=== PATIENT | female | born 1995 | race American Indian/Alaskan Native ===

== ENCOUNTER 2016-12-03 06:39 | Emergency (ER) | payer OTHER ==
[2016-12-03 06:39] VITALS: BMI 25.6
[2016-12-03 07:03] VITALS: RESP 18; TEMP 98.3
[2016-12-03 08:49] VITALS: BP 133/77; PULSE 80; O2SAT 99
--- NOTE | 2016-12-03 08:49 | ED PDOC ---
Arrival/HPI - General Chief Complaint: Female Genitourinary Time Seen by Provider: 12/03/16 07:36 Historian: Patient - History of Present Illness Narrative History of Present Illness (Text): 12/03/16 08:00 A 21 year old female, who denies any significant past medical history, presents to the emergency department for abscess to the suprapubic region, which began 1 week ago. The patient reports she was previously seen in [facility] and was given antibiotics, which was then changed by her primary medical doctor upon follow up. The patient notes she has been applying warm packs to the area and has not had any drainage. The patient admits to having increased urine frequency, but denies any fevers, dysturia, hematuria, or any other complaints at this time. Time/Duration: 1 week Symptom Onset: Gradual Symptom Course: Unchanged Activities at Onset: Light Context: Home Past Medical History - Provider Review Nursing Documentation Reviewed: Yes - Past History Past History: No Previous - Infectious Disease Hx of Infectious Diseases: None - Tetanus Immunization Tetanus Immunization: Unknown - Past Medical History Past Medical History: No Previous - Psychiatric Hx Depression: No Hx Emotional Abuse: No Hx Physical Abuse: No Hx Sexual Abuse: No Hx Substance Use: No - Past Surgical History Past Surgical History: No Previous - Anesthesia Hx Anesthesia: Yes Hx Anesthesia Reactions: No - Suicidal Assessment Feels Threatened In Home Enviroment: No Family/Social History - Physician Review Nursing Documentation Reviewed: Yes Family/Social History: Unknown Family HX Smoking Status: Never Smoked Hx Alcohol Use: No Hx Substance Use: No Hx Substance Use Treatment: No Allergies/Home Meds Allergies/Adverse Reactions: Allergies No Known Allergies Allergy (Verified 12/03/16 07:02) Home Medications: Home Meds Medication Instructions Recorded Confirmed No Known Home Med 10/05/15 12/03/16 Review of Systems - Physician Review All systems were reviewed & negative as marked: Yes - Review of Systems Constitutional: absent: Fevers Genitourinary Female: Frequency, Other (abscess to the suprapubic region). absent: Dysuria, Hematuria Physical Exam Vital Signs Reviewed: Yes Vital Signs Temp Pulse Resp BP Pulse Ox 12/03/16 08:10 80 18 133/77 99 12/03/16 07:02 98.3 F 97 H 18 138/87 100 Temperature: Afebrile Blood Pressure: Normal Pulse: Tachycardic Respiratory Rate: Normal Appearance: Positive for: Well-Appearing, Non-Toxic, Comfortable Pain Distress: None Mental Status: Positive for: Alert and Oriented X 3 - Systems Exam Respiratory/Chest: Present: Clear to Auscultation, Good Air Exchange. No: Respiratory Distress, Accessory Muscle Use Cardiovascular: Present: Regular Rate and Rhythm, Normal S1, S2. No: Murmurs Abdomen: Present: Normal Bowel Sounds. No: Tenderness, Distention, Peritoneal Signs Genitourinary/Pelvic Exam: Present: Other (2 cm indurated, fluctuant abscess that is tender to touch; no erythema). No: Vaginal Discharge, Vaginal Bleeding Medical Decision Making ED Course and Treatment: 12/03/16 08:52 Impression: A 21 year old female with genital abscess. Differential Diagnosis included but are not limited to: Plan: -- Urine Culture -- test -- Urinalysis -- Reassess and disposition Progress Notes: Procedure: Incision & Drainage Performed by the emergency provider Indication: Abscess Location: Suprapubic Preparation: The area was prepped and draped in the usual sterile fashion and was cleansed with . Procedure: The most fluctuant portion of the abscess was incised with a #11 scalpel. Approximately 10 mL of pus was obtained. The abscess was packed. A dressing was applied by the RN. Patient is instructed to follow up with her primary doctor in 2 days for wound check. Post-Procedure: On exam the abscess is notably less fluctuant. The patient tolerated the procedure well, and there were no complications. Cultured: {NO} - Lab Interpretations Lab Results: Lab Results 12/03/16 08:30: Urine Color Yellow, Urine Appearance Clear, Urine pH 6.5, Ur Specific [place] 1.025, Urine Protein Trace H, Urine Glucose (UA) Negative, Urine Ketones Negative, Urine Blood Negative, Urine Nitrate Negative, Urine Bilirubin Negative, Urine Urobilinogen 0.2, Ur Leukocyte Esterase Negative, Urine RBC Negative, Urine WBC 0 - 2, Ur Epithelial Cells 0 - 2, Urine Bacteria Trace - Scribe Statement The provider has reviewed the documentation as recorded by the Scribe Roxann Loaiza Provider Scribe Attestation: All medical record entries made by the Scribe were at my direction and personally dictated by me. I have reviewed the chart and agree that the record accurately reflects my personal performance of the history, physical exam, medical decision making, and the department course for this patient. I have also personally directed, reviewed, and agree with the discharge instructions and disposition. Disposition/Present on Arrival - Present on Arrival Any Indicators Present on Arrival: No History of DVT/PE: No History of Uncontrolled Diabetes: No Urinary Catheter: No History of Decub. Ulcer: No History Surgical Site Infection Following: None - Disposition Have Diagnosis and Disposition been Completed?: Yes Diagnosis: Abscess Disposition: HOME/ ROUTINE Disposition Time: 08:00 Condition: IMPROVED Discharge Instructions (ExitCare): Abscess (ED) Additional Instructions: Thank you for letting us take care of you today. Your provider was Dr. Mccullough. You were treated for an abscess. The emergency medical care you received today was directed at your acute symptoms. If you were prescribed any medication, please fill it and take as directed. It may take several days for your symptoms to resolve. Return to the Emergency Department if your symptoms worsen, do not improve, or if you have any other problems. Please contact your doctor or call one of the physicians/clinics you have been referred to that are listed on the Patient Visit Information form that is included in your discharge packet. Bring any paperwork you were given at discharge with you along with any medications you are taking to your follow up visit. Our treatment cannot replace ongoing medical care by a primary care provider (PCP) outside of the emergency department. Thank you for allowing the [facility] team to be part of your care today. Continue applying warm packs to the area as much as possible. Continue taking the antibiotics that you were prescribed. Follow up with your doctor in 2 days for a wound check. Referrals: PCP,NO [Primary Care Provider] - Follow up with primary Forms: [employer] ([place])
[2016-12-03 08:53] LABS: PH,URINE 6.5 (4.7-8.0); URINE BILIRUBIN NEGATIVE (NEGATIVE); URINE BLOOD NEGATIVE (NEGATIVE); URINE GLUCOSE (UA) NEGATIVE (NEGATIVE); URINE KETONE NEGATIVE (NEGATIVE); URINE LEUKOCYTE ESTERASE NEGATIVE Leu/uL (NEGATIVE); URINE PROTEIN TRACE mg/dL (<30 mg/dL); URINE UROBILINOGEN 0.2 E.U./dL (<1 E.U./dL)
[2016-12-03 09:00] LABS: URINE COLOR YELLOW (YELLOW)
[2016-12-03 09:01] LABS: URINE APPEARANCE CLEAR (CLEAR)
[2016-12-03 09:14] LABS: URINE BACTERIA TRACE (NEG); URINE EPITHELIAL CELLS 0 - 2 /hpf (0-5); URINE RBC NEGATIVE /hpf (0-2); URINE WBC 0 - 2 /hpf (0-6)
== END 2016-12-03 08:50 | disposition home or self-care (01) ==
LOC: ED 06:39
DX: L02.818 Cutaneous abscess of other sites (principal)

== ENCOUNTER 2017-02-19 20:45 | Emergency (ER) | payer OTHER ==
[2017-02-19 20:46] VITALS: BMI 25.6
[2017-02-19] MEDS ORDERED: Sodium Chloride 0.9% 1,000 ML IV STA (21:18)
[2017-02-19 21:50] LABS: BASO # 0.01 K/mm3 (0.0-2.0); BASO % 0.1 % (0.0-3.0); EOS # 0.1 (0.0-0.7); EOS % 1.8 % (1.5-5.0); GRAN # 5.68 (1.4-6.5); LYMPH % 13.7 % (22.0-35.0); MEAN CELL VOLUME 91.1 fl (80.0-105.0); MEAN CORPUSCULAR HEMOGLOBIN 31.5 pg (25.0-35.0); MEAN CORPUSCULAR HGB CONC 34.6 g/dl (31.0-37.0); MEAN PLATELET VOLUME 11.2 fl (7.0-11.0); MONO # 0.5 (0.1-0.6); MONO % 6.4 % (1.0-6.0); RED CELL DISTRIBUTION WIDTH 13.1 % (11.5-14.5); WHITE BLOOD COUNT 7.3 10^3/ul (4.5-11.0)
[2017-02-19 21:51] LABS: URINE BILIRUBIN NEGATIVE (NEGATIVE); URINE BLOOD NEGATIVE (NEGATIVE); URINE GLUCOSE (UA) NEGATIVE (NEGATIVE); URINE KETONE >=80 mg/dL (NEGATIVE); URINE LEUKOCYTE ESTERASE NEGATIVE Leu/uL (NEGATIVE); URINE PROTEIN 30 mg/dL (<30 mg/dL)
[2017-02-19 21:54] LABS: URINE APPEARANCE CLEAR (CLEAR); URINE COLOR YELLOW (YELLOW)
[2017-02-19 21:57] LABS: ALB/GLOB RATIO 1.1 (1.1-1.8); ALKALINE PHOSPHATASE 41 U/L (38-126); ALT/SGPT 27 U/L (7-56); AST/SGOT 33 U/L (14-36); BILIRUBIN,TOTAL 0.5 mg/dL (0.2-1.3); BLOOD UREA NITROGEN 7 mg/dL (7-21); CALCIUM 9.4 mg/dL (8.4-10.5); CARBON DIOXIDE 21 mmol/L (21-33); CHLORIDE 104 mmol/L (98-107); GFR AFRICAN-AMERICAN > 60; GLUCOSE,RANDOM 81 mg/dL (70-110); LIPASE 41 U/L (23-300); POTASSIUM 3.5 mmol/L (3.6-5.0); SODIUM 135 mmol/L (132-148); TOTAL PROTEIN 8.1 g/dL (5.8-8.3)
--- NOTE | 2017-02-19 21:57 | ED PDOC ---
Arrival/HPI <Roman Goldman - Last Filed: 02/19/17 22:28> - General Historian: Patient - History of Present Illness Time/Duration: Other (2 days) Symptom Onset: Gradual Symptom Course: Unchanged Quality: Cramping Severity Level: 5 <Jada Christie - Last Filed: 02/20/17 14:54> - General Chief Complaint: GI Problem Time Seen by Provider: 02/19/17 20:55 - History of Present Illness Narrative History of Present Illness (Text): 02/19/17 21:54 21-year-old female was approximately 10 weeks presents today with abdominal cramping since yesterday. Patient with nausea and vomiting. No diarrhea. No chest pain or shortness of breath. Patient complaining of urinary frequency. Denies vaginal bleeding or vaginal discharge. Patient is A1. Patient states she had similar symptoms during her last when she had a miscarriage. Patient states she is being followed by a bottom wheeler and has had an ultrasound to document IUP during this . (Jada Christie) Past Medical History - Provider Review Nursing Documentation Reviewed: Yes - Travel History Have you recently traveled outside [place] w/in the past 3 mons?: No - Past History Past History: No Previous - Infectious Disease Hx of Infectious Diseases: None - Tetanus Immunization Tetanus Immunization: Unknown - Past Medical History Past Medical History: No Previous - Psychiatric Hx Depression: No Hx Emotional Abuse: No Hx Physical Abuse: No Hx Sexual Abuse: No Hx Substance Use: No - Past Surgical History Past Surgical History: No Previous - Anesthesia Hx Anesthesia: No Hx Anesthesia Reactions: No - Suicidal Assessment Feels Threatened In Home Enviroment: No <Jada Christie - Last Filed: 02/20/17 14:54> Family/Social History - Physician Review Nursing Documentation Reviewed: Yes Family/Social History: Unknown Family HX Smoking Status: Never Smoked Hx Alcohol Use: No Hx Substance Use: No Hx Substance Use Treatment: No <Jada Christie - Last Filed: 02/20/17 14:54> Allergies/Home Meds <Roman Goldman - Last Filed: 02/19/17 22:28> <Jada Christie - Last Filed: 02/20/17 14:54> Allergies/Adverse Reactions: Allergies No Known Allergies Allergy (Verified 02/19/17 20:48) Review of Systems - Review of Systems Constitutional: absent: Fatigue, Fevers ENT: absent: Sore Throat, Sinus Congestion Respiratory: absent: SOB, Cough Cardiovascular: absent: Chest Pain, Palpitations Gastrointestinal: Abdominal Pain, Nausea, Vomiting. absent: Constipation, Diarrhea Genitourinary Female: Frequency. absent: Dysuria, Hematuria, Vaginal Bleeding, Vaginal Discharge Musculoskeletal: absent: Arthralgias, Back Pain, Neck Pain Skin: absent: Rash, Pruritis Neurological: absent: Headache, Dizziness Psychiatric: absent: Anxiety, Depression, Suicidal Ideation <Jada Christie T - Last Filed: 02/20/17 14:54> Physical Exam Vital Signs Reviewed: Yes Temperature: Afebrile Blood Pressure: Normal Pulse: Tachycardic Respiratory Rate: Normal Appearance: Positive for: Well-Appearing, Non-Toxic, Comfortable Pain Distress: None Mental Status: Positive for: Alert and Oriented X 3 - Systems Exam Head: Present: Atraumatic Mouth: Present: Moist Mucous Membranes Neck: Present: Normal Range of Motion Respiratory/Chest: Present: Clear to Auscultation, Good Air Exchange. No: Respiratory Distress, Accessory Muscle Use Cardiovascular: Present: Regular Rate and Rhythm, Normal S1, S2. No: Murmurs Abdomen: Present: Normal Bowel Sounds. No: Tenderness, Distention, Peritoneal Signs, Rebound, Guarding Genitourinary/Pelvic Exam: Present: Normal External Genitalia, Cervical os Closed, Other (chaparoned by Radha JENKINS). No: Vaginal Discharge, Vaginal Bleeding, Vaginal Lesions, Adenexal Tenderness, Adenexal Mass, Cervical Motion Tendernes, Odor Back: Present: Normal Inspection. No: CVA Tenderness, Midline Tenderness, Paraspinal Tenderness Upper Extremity: Present: Normal ROM Lower Extremity: Present: Normal ROM Neurological: Present: GCS=15, Speech Normal Skin: Present: Warm, Dry, Normal Color. No: Rashes Psychiatric: Present: Alert, Oriented x 3 <Jada Christie T - Last Filed: 02/20/17 14:54> Vital Signs Temp Pulse Resp BP Pulse Ox 02/20/17 02:06 98.9 F 85 18 104/64 100 02/20/17 01:45 85 18 123/72 100 02/19/17 22:08 78 16 116/70 100 02/19/17 20:48 98.4 F 105 H 16 114/77 97 Medical Decision Making <Roman Goldman - Last Filed: 02/19/17 22:28> <Jada Christie - Last Filed: 02/20/17 14:54> ED Course and Treatment: 02/19/17 21:56 Patient is nontoxic well appearing in no distress. CBC: wnl CMP: k; 3.5 Beta hC TYPE AND SCREEN: A+ Urinalysis: no leukocytes, + ketones Ultrasound:FINDINGS: Gestation: Single live intrauterine . Yolk sac and pole noted. Estimated gestational age based on crown-rump length is 9 weeks 3 days. heart rate measured at 163 bpm. Uterus/cervix: No acute abnormality as visualized. Ovaries: No acute abnormality as visualized. Bilateral Doppler flow. Free fluid: No free fluid. IMPRESSION: Single live IUP as above. Discussed all the results the patient. advised f/u with the optimization specialist within the next 2 days. advised immediate return if symptoms worsen,persist or if new symptoms develop. Patient verbalizes understanding of discharge instructions and need for immediate followup. all aspects of this case were discussed the attending of record. Impression: threatened , abdominal pain in Tylenol every 4 hours as needed for pain Increase fluids Take diclegis at bedtime for nausea/vomiting. Followup with the quarry manager within the next 2 days Return immediately if symptoms worsen persist or if new symptoms develop: High fevers, heavy bleeding, severe abdominal pain, vomiting, diarrhea, dizziness or weakness or any other concerning symptoms develop. (Jada Christie) - Lab Interpretations Lab Results: 02/19/17 21:20 02/19/17 21:20 Lab Results 02/19/17 22:45: Blood Type Confirm A POSITIVE 02/19/17 21:20: Blood Type A POSITIVE, Antibody Screen Negative, BBK History Checked No verified bt 02/19/17 21:20: Urine Color Yellow, Urine Appearance Clear, Urine pH 6.0, Ur Specific [place] >= 1.030, Urine Protein 30 H, Urine Glucose (UA) Negative, Urine Ketones >=80, Urine Blood Negative, Urine Nitrate Negative, Urine Bilirubin Negative, Urine Urobilinogen 1.0 H, Ur Leukocyte Esterase Negative, Urine RBC 2 - 5, Urine WBC 0 - 2, Ur Epithelial Cells 4 - 5, Urine Bacteria Many 02/19/17 21:20: WBC 7.3, RBC 3.84, Hgb 12.1, Hct 35.0 L, MCV 91.1, MCH 31.5, MCHC 34.6, RDW 13.1, Plt Count 260, MPV 11.2 H, Gran % 78.0 H, Lymph % (Auto) 13.7 L, [place] % (Auto) 6.4 H, Eos % (Auto) 1.8, Baso % (Auto) 0.1, Gran # 5.68, Lymph # 1.0 L, [place] # 0.5, Eos # 0.1, Baso # 0.01 02/19/17 21:20: Beta HCG, Quant [id number] H 02/19/17 21:20: Sodium 135, Potassium 3.5 L, Chloride 104, Carbon Dioxide 21, Anion Gap 14, BUN 7, Creatinine 0.5 L, Est GFR ( Amer) > 60, Est GFR (Non -Af Amer) > 60, Random Glucose 81, Calcium 9.4, Total Bilirubin 0.5, AST 33, ALT 27, Alkaline Phosphatase 41, Total Protein 8.1, Albumin 4.2, Globulin 3.9, Albumin/Globulin Ratio 1.1, Lipase 41 - RAD Interpretation Radiology Orders: 02/19/17 21:17 OB TRANSVAGINAL [US] Stat - Medication Orders Current Medication Orders: Discontinued Medications Acetaminophen (Tylenol 325mg Tab) 975 mg PO STAT STA Stop: 02/19/17 21:56 Last Admin: 02/19/17 22:07 Dose: 975 mg MAR Pain/Vitals Document 02/19/17 22:07 AD (Rec: 02/19/17 22:07 AD [id number]) Pain Reassessment Is This A Pain ReAssessment? No Presence of Pain Presence of Pain Yes Pain Scale Used Pain Scale Used Numeric Location Pain Location Body Nursing Home Physician Description Intermittent Intensity 5 Scale Used Numeric Pain Behavior Facial Grimacing Sodium Chloride (Sodium Chloride 0.9%) 1,000 mls @ 999 mls/hr IV .Q1H1M STA Stop: 02/19/17 22:18 Last Admin: 02/19/17 21:36 Dose: 999 mls/hr eMAR Start Stop Document 02/19/17 21:36 AD (Rec: 02/19/17 21:36 AD [id number]) Intravenous Solution Start Date 02/19/17 Start Time 21:36 Sodium Chloride (Sodium Chloride 0.9%) 1,000 mls @ 999 mls/hr IV .Q1H1M STA Stop: 02/20/17 00:39 Last Admin: 02/20/17 02:08 Dose: 999 mls/hr eMAR Start Stop Document 02/20/17 02:08 DEEPIKA (Rec: 02/20/17 02:08 [email or web address] [id number]) Intravenous Solution Start Date 02/20/17 Start Time 00:15 End Date 02/20/17 End time 01:50 Total Infusion Time 95 - PA / ACIDIZER / Resident Statement CASIE has reviewed & agrees with the documentation as recorded. CASIE has examined the patient and agrees with the treatment plan. <Roman Goldman - Last Filed: 02/19/17 22:28> Disposition/Present on Arrival <Roman Goldman - Last Filed: 02/19/17 22:28> - Present on Arrival Any Indicators Present on Arrival: No History of DVT/PE: No History of Uncontrolled Diabetes: No Urinary Catheter: No History of Decub. Ulcer: No History Surgical Site Infection Following: None - Disposition Have Diagnosis and Disposition been Completed?: Yes Disposition Time: 01:59 Patient Plan: Discharge <Jada Christie - Last Filed: 02/20/17 14:54> - Disposition Diagnosis: Threatened , Abdominal pain affecting Disposition: HOME/ ROUTINE Condition: GOOD Discharge Instructions (ExitCare): Threatened Miscarriage (ED) Additional Instructions: Tylenol every 4 hours as needed for pain Increase fluids Take diclegis at bedtime for nausea/vomiting. Followup with the quarry manager within the next 2 days Return immediately if symptoms worsen persist or if new symptoms develop: High fevers, heavy bleeding, severe abdominal pain, vomiting, diarrhea, dizziness or weakness or any other concerning symptoms develop. Prescriptions: Doxylamine/Pyridoxine HCl (B6) [[place] Dr 10-10 mg Tablet] 2 tab PO HS #8 tab Multivit/Folic Acid/I [ Plus] 1 tab PO DAILY #30 tab Referrals: [facility] [place] [Outside] - [facility] with [facility] [Outside] - Follow up with primary Michael Guillermo DO [Staff Provider] - Follow up with primary Forms: [employer] (Salvadorean)
[2017-02-19 22:08] VITALS: O2SAT 100
[2017-02-19 23:01] LABS: URINE WBC 0 - 2 /hpf (0-6)
[2017-02-19 23:02] LABS: URINE BACTERIA MANY (NEG)
--- NOTE | 2017-02-19 23:18 | US ---
EXAM: US CLINICAL HISTORY: 21 years old, female; Pain; complicated by abdominal or pelvic pain; Lower; First trimester; Gestational age or lmp: 9wks; ; Additional info: Crampy pain, 10 weeks TECHNIQUE: Real-time transabdominal and transvaginal obstetrical ultrasound of the maternal pelvis and a first trimester with image documentation. Transvaginal imaging was used for better evaluation of the fetus and adnexa. COMPARISON: No relevant prior studies available. FINDINGS: Gestation: Single live intrauterine . Yolk sac and pole noted. Estimated gestational age based on crown-rump length is 9 weeks 3 days. heart rate measured at 163 bpm. Uterus/cervix: No acute abnormality as visualized. Ovaries: No acute abnormality as visualized. Bilateral Doppler flow. Free fluid: No free fluid. IMPRESSION: Single live IUP as above.
[2017-02-20] MEDS: Sodium Chloride 0.9% 1,000 ML IV STA ×2 (00:14→02:08)
[2017-02-20 02:07] VITALS: BP 104/64; PULSE 85; RESP 18; TEMP 98.9
== END 2017-02-20 02:26 | disposition home or self-care (01) ==
LOC: ED 20:45
DX: O20.0 Threatened abortion (principal); Z3A.09 9 weeks gestation of pregnancy
CPT/HCPCS: 76817; 80053; 81001; 83690; 84702; 85025; 86850; 86900; 87086; 96360; 96361; 99285; J7040